=== PATIENT | female | born 1965 | race Caucasian/White ===

== ENCOUNTER 2024-06-21 18:55 | Emergency (ER) | payer MEDICARE, MEDICAID, SELFPAY ==
[2024-06-21 19:04] VITALS: BP 160/92; PULSE 101; TEMP 37.5; O2SAT 97; BMI 22.1
--- NOTE | 2024-06-21 19:17 | CT_ITS ---
The [address] [address] Patient Name: SHIRLEY KILGORE MRN: [id number] date: 1965 Sex: F Assigned Patient Location: ER Current Patient Location: ER Accession/Order Number: [id number] Exam Date: 06/21/2024 19:53 Report Date: 06/21/2024 20:50 At the request of: RAFFI OCONNOR Procedure: CT abdomen pelvis w con EXAM: CT abdomen pelvis w con HISTORY: Lower abd pain . Nausea. COMPARISON: None. TECHNIQUE: Enhanced helical acquisition obtained through the abdomen and the pelvis. FINDINGS: Anatomical distortion secondary to severe dextroconvex scoliotic curvature of the thoracolumbar spine. Beam hardening artifact from thoracolumbar spinal rods. Unremarkable gallbladder. No significant biliary ductal dilatation. The liver, spleen, pancreas, adrenal glands and the kidneys are unremarkable. No enlarged lymph nodes within the abdomen or the pelvis. Acute diverticulitis of the mid sigmoid colon. No evidence of abscess, ascites or free intraperitoneal gas. Normal appendix. Fairly extensive stool burden throughout the colon indicating constipation. CT/CT abdomen pelvis w con IMPRESSION: 1. Acute diverticulitis of the mid sigmoid colon. No abscess, ascites or free intraperitoneal gas. 2. Extensive stool burden throughout the colon indicating constipation. 3. Severe dextroconvex scoliotic curvature of the thoracolumbar spine. Electronically authenticated by: JEAN PAUL GARCIA Date: 06/21/2024 20:50
--- NOTE | 2024-06-21 19:18 | ED_ITS ---
HPI - Abdominal Pain General Chief Complaint: Abdominal Pain Stated Complaint: Abdominal Pain Time Seen by Provider: 06/21/24 19:10 Source: patient Mode of arrival: walk-in History of Present Illness HPI narrative: 58 year old female presents to the ED for low abd pain. Onset was 1-2 days ago. Denies fever, chills, N/V/D, urinary sx. Reports hx diverticulitis. Related Data Previous Rx's ?Medication ?Instructions ?Recorded ciprofloxacin HCl 500 mg tablet 500 mg PO Q12H 10 days #20 tabs 06/21/24 (Cipro) metronidazole 500 mg tablet 500 mg PO TID 10 days #30 tabs 06/21/24 ondansetron HCl 4 mg tablet 4 mg PO Q8H PRN nausea and 06/21/24 vomiting #10 tabs Allergies Allergy/AdvReac Type Severity Reaction Status Date / Time morphine Allergy Severe Hives Verified 06/21/24 19:09 Penicillins Allergy Severe Hives Verified 06/21/24 19:09 Sulfa (Sulfonamide Allergy Severe Hives Verified 06/21/24 19:09 Antibiotics) Review of Systems ROS Constitutional Denies: fever or chills Ears, nose, mouth, and throat Denies: throat pain Cardiovascular Denies: chest pain Respiratory Denies: shortness of breath Gastrointestinal Reports: abdominal pain; Denies: nausea, vomiting or diarrhea Genitourinary Denies: painful urination, urinary frequency, urinary urgency or blood in urine Musculoskeletal Denies: back pain or neck pain Integumentary/Breast Denies: rash Neurological Denies: headache or dizziness Exam Constitutional Vital Signs, click to edit/add: Last Vital Signs Temp 99.5 F 06/21/24 19:04 Pulse 103 H 06/21/24 22:03 Resp 20 06/21/24 22:03 BP 115/87 06/21/24 22:03 Pulse Ox 94 L 06/21/24 22:03 O2 Del Method Room Air 06/21/24 22:03 Common normals: no apparent distress and oriented x3 General appearance: cooperative Eye Common normals: conjunctivae normal and no scleral icterus Neck & C-Spine Common normals: supple GI Common normals: Normal to inspection, nondistended, normoactive bowel sounds present and soft to palpation Palpation: tender Details: LLQ and RLQ Neuro Common normals: oriented x3 Sensorium/orientation: awake and alert Speech: speech normal Course Vital Signs Vital signs: Vital Signs Temperature 99.5 F 06/21/24 19:04 Pulse Rate 101 H 06/21/24 19:04 Respiratory Rate 18 06/21/24 19:04 Blood Pressure 160/92 H 06/21/24 19:04 Pulse Oximetry 97 06/21/24 19:04 Oxygen Delivery Method Room Air 06/21/24 19:04 Temperature 99.5 F 06/21/24 19:04 Pulse Rate 103 H 06/21/24 22:03 Respiratory Rate 20 06/21/24 22:03 Blood Pressure 115/87 06/21/24 22:03 Pulse Oximetry 94 L 06/21/24 22:03 Oxygen Delivery Method Room Air 06/21/24 22:03 MDM - Abdominal Pain MDM Narrative Medical decision making narrative: WBC count was 12.8. CT scan showed acute diverticulitis of the mid sigmoid colon; constipation. Findings were discussed with the patient. She was comfortable being discharged home. She was given the first dose of her antibiotics here. Prescriptions were provided for Cipro and Flagyl. Follow up with pcp for a recheck, further evaluation and treatment. Differential Diagnosis Differential diagnosis: Likely abdominal pain, constipation, diverticulitis and small bowel obstruction Medical Records Attestation: I reviewed the patient's medical records. Lab Data Attestation: I reviewed the patient's lab results. Labs: Lab Results 06/21/24 06/21/24 Range/Units 19:20 19:50 WBC 12.8 H (4.0-11.0) 10^3/uL RBC 4.52 (4.20-5.40) 10^6/uL Hgb 13.5 (12.0-16.0) g/dL Hct 40.0 (36.0-48.0) % MCV 88.5 (81.0-99.0) fL MCH 29.9 (26.7-34.0) pg MCHC 33.8 (29.9-35.2) g/dL RDW 12.6 (11.0-15.0) % Plt Count 325 (150-450) 10^3/uL MPV 10.0 (9.5-13.5) fL Neut % (Auto) 71.7 (43.0-75.0) % Lymph % (Auto) 18.1 L (20.5-60.0) % [place] % (Auto) 9.4 (1.7-12.0) % Eos % (Auto) 0.3 L (0.9-7.0) % Baso % (Auto) 0.2 (0.2-2.0) % Neut # (Auto) 9.1 H (1.4-6.5) 10^3/uL Lymph # (Auto) 2.3 (1.2-3.8) 10^3/uL [place] # (Auto) 1.2 H (0.3-0.8) 10^3/uL Eos # (Auto) 0.0 (0.0-0.7) 10^3/uL Baso # (Auto) 0.0 (0.0-0.1) 10^3/uL Abs Immat Gran (auto) 0.04 H (0.00-0.03) 10^3/uL Imm/Tot Granulo (auto) 0.3 (0.0-0.5) % Sodium 136 (136-145) mmol/L Potassium 3.6 (3.5-5.1) mmol/L Chloride 98 (98-107) mmol/L Carbon Dioxide 30.1 (21.0-32.0) mmol/L Anion Gap 11.5 BUN 10.0 (7.0-18.0) mg/dL Creatinine 0.56 (0.55-1.02) mg/dL Est GFR ( Amer) >60 (>=60) Est GFR (Non-Af Amer) >60 (>=60) BUN/Creatinine Ratio 17.9 Glucose 102 (74-106) mg/dL Calcium 9.0 (8.5-10.1) mg/dL Total Bilirubin 0.7 (0.2-1.0) mg/dL AST 28 (15-37) U/L ALT 27 (14-59) U/L Alkaline Phosphatase 115 (46-116) U/L Total Protein 7.3 (6.4-8.2) g/dL Albumin 3.5 (3.4-5.0) g/dL Globulin 3.8 g/dL Albumin/Globulin Ratio 0.9 Lipase 25.0 (16.0-77.0) U/L Urine Color Yellow (YELLOW) Urine Clarity Clear (CLEAR) Urine pH 6.0 (5.0-9.0) Ur Specific [place] >=1.030 A (1.005-1.025) Urine Protein Negative (NEG/TRACE) mg/dL Urine Glucose (UA) Negative (NEGATIVE) mg/dL Urine Ketones Negative (NEGATIVE) mg/dL Urine Occult Blood Trace-i (NEGATIVE) Urine Nitrite Negative (NEGATIVE) Urine Bilirubin Negative (NEGATIVE) Urine Urobilinogen 1.0 (0.2-1.0) EU/dL Ur Leukocyte Esterase Negative (NEGATIVE) Urine RBC 0-2 (0-2) #/HPF Urine WBC 2-5 A (NONE SEEN) #/HPF Ur Squamous Epith Cells Rare (NONE/RARE) #/LPF Urine Crystals Seen A (None Seen) #/HPF Amorphous Sediment Rare Urine Bacteria None seen (NONE SEEN) #/HPF Urine Casts None seen (NONE SEEN) #/LPF Urine Mucus Large A (NONE SEEN) Ur Culture Indicated? No Imaging Data CT scan - abdomen: Radiologist's impression: ITS Impressions Abdomen/Pelvis CT 06/21/24 19:17 IMPRESSION: 1. Acute diverticulitis of the mid sigmoid colon. No abscess, ascites or free intraperitoneal gas. 2. Extensive stool burden throughout the colon indicating constipation. 3. Severe dextroconvex scoliotic curvature of the thoracolumbar spine. Electronically authenticated by: JEAN PAUL GARCIA Date: 06/21/2024 20:50 Discharge Plan Discharge Chief Complaint: Abdominal Pain Clinical Impression: Diverticulitis, Abdominal pain, Constipation Patient Disposition: Home, Self-Care Time of Disposition Decision: 20:57 Condition: Good Mode of Transportation: Private Vehicle Prescriptions / Home Meds: New ciprofloxacin HCl [Cipro] 500 mg tablet 500 mg PO Q12H 10 Days Qty: 20 0RF metronidazole 500 mg tablet 500 mg PO TID 10 Days Qty: 30 0RF ondansetron HCl 4 mg tablet 4 mg PO Q8H PRN (Reason: nausea and vomiting) Qty: 10 0RF Print Language: Peruvian Instructions: Diverticulitis (ED), Constipation (DC), Abdominal Pain (ED) Additional Instructions: Return to the ER if your condition worsens. Referrals: JEANETH HAIRSTON [Primary Care Provider] - 1 week Discharge Date/Time: 06/21/24 23:06
[2024-06-21 19:27] LABS: Basophils Percent Auto 0.2 % (0.2-2.0); Eosinophils Percent Auto 0.3 % (0.9-7.0); Hemoglobin 13.5 g/dL (12.0-16.0); Immature Granulocytes Abs Auto 0.04 10^3/uL (0.00-0.03); Immature Granulocytes Pct Auto 0.3 % (0.0-0.5); Lymphocytes Absolute Auto 2.3 10^3/uL (1.2-3.8); Lymphocytes Percent Auto 18.1 % (20.5-60.0); Mean Corpuscular HGB Conc 33.8 g/dL (29.9-35.2); Mean Corpuscular Hemoglobin 29.9 pg (26.7-34.0); Mean Corpuscular Volume 88.5 fL (81.0-99.0); Monocytes Absolute Auto 1.2 10^3/uL (0.3-0.8); Monocytes Percent Auto 9.4 % (1.7-12.0); Neutrophils Absolute Auto 9.1 10^3/uL (1.4-6.5); Neutrophils Percent Auto 71.7 % (43.0-75.0); Platelet Count 325 10^3/uL (150-450); Red Blood Count 4.52 10^6/uL (4.20-5.40); Red Cell Distribution Width 12.6 % (11.0-15.0); White Blood Count 12.8 10^3/uL (4.0-11.0)
[2024-06-21 19:52] LABS: Alanine Aminotransferase 27 U/L (14-59); Albumin Globulin Ratio 0.9; Albumin Level 3.5 g/dL (3.4-5.0); Alkaline Phosphatase 115 U/L (46-116); Anion Gap 11.5; Aspartate Amino Transferase 28 U/L (15-37); BUN Creatinine Ratio 17.9; Bilirubin Total 0.7 mg/dL (0.2-1.0); Carbon Dioxide 30.1 mmol/L (21.0-32.0); Chloride 98 mmol/L (98-107); Estimated GFR (African America >60 (>=60); Estimated GFR (Non-African Ame >60 (>=60); Globulin 3.8 g/dL; Glucose 102 mg/dL (74-106); Potassium 3.6 mmol/L (3.5-5.1); Sodium 136 mmol/L (136-145); Total Protein 7.3 g/dL (6.4-8.2)
[2024-06-21 20:02] LABS: Bilirubin Urine NEGATIVE (NEGATIVE); Blood Urine TRACE-I (NEGATIVE); Clarity Urine CLEAR (CLEAR); Color Urine YELLOW (YELLOW); Glucose Urine UA NEGATIVE (NEGATIVE); Ketones Urine NEGATIVE (NEGATIVE); Leukocyte Esterase Urine NEGATIVE (NEGATIVE); Nitrite Urine NEGATIVE (NEGATIVE); Protein Urine NEGATIVE (NEG/TRACE); Specific Gravity Urine >=1.030 (1.005-1.025)
[2024-06-21 20:03] LABS: Urine Microscopic Indicated YES
[2024-06-21] MEDS: 0.9 % SODIUM CHLORIDE 1,000 ML 100 ML IV (20:05)
[2024-06-21 20:08] LABS: Amorphous Sediment Urine RARE; Bacteria Urine NONE SEEN #/HPF (NONE SEEN); Cast Seen? NONE SEEN #/LPF (NONE SEEN); Crystals Seen? Seen #/HPF (None Seen); Mucus Urine LARGE (NONE SEEN); RBC Urine 0-2 #/HPF (0-2); Squamous Epithelial Cell Urine RARE #/LPF (NONE/RARE); Urine Culture Indicated NO
[2024-06-21] MEDS: CIPROFLOXACIN IN 5 % DEXTROSE 400 MG/200 ML PREMIX 200 MG IV (21:00)
[2024-06-21 22:03] VITALS: BP 115/87; PULSE 103; O2SAT 94
[2024-06-21] MEDS: METRONIDAZOLE/SODIUM CHLORIDE 500 MG/100 ML PREMIX 100 MG IV (22:05)
[2024-06-21] MEDS: ONDANSETRON PF 4 MG/2 ML VIAL IV (22:10)
== END 2024-06-21 23:06 | disposition home or self-care (01) ==
PROVIDERS: Nurse Practitioner Family; Emergency Provider Internal Medicine; PCP Family Medicine
DX: K57.32 Diverticulitis of large intestine without perforation or abscess without bleeding (principal); R10.9 Unspecified abdominal pain; K59.00 Constipation, unspecified
CPT/HCPCS: 36415; 74177; 80053; 81001; 83690; 85025; 96365; 96375; 99285; J0744; J1836; J2405; Q9967